=== PATIENT | male | born 1960 | race Two or more races ===

== ENCOUNTER 2018-07-30 09:43 | Emergency (ER) | payer OTHER ==
[~2018-07-30] VITALS: Ht 172.7 cm; Wt 60.8 kg
== END 2018-07-30 19:07 | disposition home or self-care (01) ==
LOC: ER 09:43
DX: K40.30 Unilateral inguinal hernia, with obstruction, without gangrene, not specified as recurrent (principal)

== ENCOUNTER 2018-08-03 09:04 | Outpatient (CLI) | payer OTHER | END 2018-08-03 09:45 | disposition home or self-care (01) | LOC: SONOGRAMA 09:04 | DX: K40.90 Unilateral inguinal hernia, without obstruction or gangrene, not specified as recurrent (principal) ==

== ENCOUNTER 2018-09-22 08:03 | Emergency (ER) | payer OTHER ==
[~2018-09-22] VITALS: Ht 172.7 cm; Wt 62.1 kg
== END 2018-09-22 13:49 | disposition home or self-care (01) ==
LOC: ER 08:03
DX: K40.90 Unilateral inguinal hernia, without obstruction or gangrene, not specified as recurrent (principal)

== ENCOUNTER 2023-09-19 16:22 | Emergency (ER) | payer OTHER ==
[~2023-09-19] VITALS: Ht 162.6 cm; Wt 61.2 kg
[2023-09-19 17:12] LABS: HEMATOCRIT 41.6 % (39.0-48.0); MEAN CELL VOLUME 93.5 fL (80.0-100.00); MEAN CORPUSCULAR HEMOGLOBIN 31.5 pg (27.00-32.0); MEAN CORPUSCULAR HGB CONC 33.7 g/dl (32.0-36.0); PLATELET COUNT 321 K/uL (150-450); RED BLOOD COUNT 4.45 M/uL (4.00-6.00); RED CELL DISTRIBUTION WIDTH 13.7 % (11.5-14.5)
[2023-09-19 17:34] LABS: ALBUMIN 3.9 gm/dL (3.4-5.0); BILIRUBIN TOTAL 0.28 mg/dL (0.3-1.2); CREATININE SERUM 0.7 mg/dL (0.70-1.30); GFR 113.18; POTASSIUM 3.78 mEq/L (3.5-5.1); TOTAL PROTEIN 7.9 gm/dL (6.4-8.2)
== END 2023-09-19 18:02 | disposition home or self-care (01) ==
LOC: ER 16:22
PROVIDERS: General Practice
DX: R53.81 Other malaise (principal); R29.90 Unspecified symptoms and signs involving the nervous system; F10.10 Alcohol abuse, uncomplicated